=== PATIENT | male | born 1970 | race Hispanic/Latino ===

== ENCOUNTER → 2024-08-06 | Day surgery (SDC) | payer OTHER ==
[~2024-08-06] MED LIST: LIDOCAINE HCL 2% LOCAL INJ 5 ML SDV VIAL INJ ONE; LOSARTAN-HCTZ1 EACH PO; MIDAZOLAM HCL 2 MG/2 ML VIAL ONE; MULTIVITAMIN1 EACH PO; PROPOFOL IV EMULSION 10 MG/ML 20 ML VIAL ONE
[2024-08-06] MEDS: LACTATED RINGER'S 1,000 ML ONE (10:01)
[2024-08-06 11:20] VITALS: BP 114/83; PULSE 67; RESP 17; TEMP 97; O2SAT 99
== END | disposition home or self-care (01) ==
LOC: OR 07:47
PROVIDERS: ATTEND Internal Medicine Gastroenterology
DX: Z12.11 Encounter for screening for malignant neoplasm of colon (principal); D12.4 Benign neoplasm of descending colon; K64.8 Other hemorrhoids; I10 Essential (primary) hypertension; Z79.899 Other long term (current) drug therapy
CPT/HCPCS: 45384; 88305; 93005; J2250; J7121; 45378; J2003